=== PATIENT | female | born 1975 | race Caucasian/White ===

== ENCOUNTER 2017-08-13 18:05 | Emergency (ER) | payer OTHER ==
[~2017-08-13] VITALS: Ht 170.2 cm; Wt 59.1 kg
[~2017-08-13 18:05] MED LIST: ATIVAN0.5 MG PO; CORTISOL; LEVOTHYROXINE0.15 MG PO; MULTIVITAMIN1 TA1 PO; NO HOME MEDICATIONS; PERCOCET 325 MG1 TA2 PO; VITAMIN C BUFF500 MG PO; VITAMIN D5000 IU PO; ZOFRAN 4MG T4 MG/TAB PO; [UNRECOGNIZED DRUG - OTHER] PO; [UNRECOGNIZED DRUG - REMARK]; [UNRECOGNIZED DRUG - REMARK]; vitamins
[2017-08-13 18:09] VITALS: BP 144/63; TEMP 99.3
[2017-08-13 19:38] VITALS: PULSE 65
== END 2017-08-13 19:40 | disposition home or self-care (01) ==
LOC: COL.ER 18:05
DX: S63.257A Unspecified dislocation of left little finger, initial encounter (principal); W21.01XA Struck by football, initial encounter

== ENCOUNTER 2022-03-28 23:48 | Observation (INO) | payer OTHER ==
[~2022-03-28] VITALS: Ht 170.2 cm; Wt 75.0 kg
[2022-03-29] VITALS (12 sets, daily range): BP systolic 97–131; BP diastolic 50–86; PULSE 59–76; TEMP 98–98.5
[2022-03-29 00:39] LABS: BASO # 0.1 K/mm3 (0.0-0.2); BASO % 0.4 % (0.0-2.0); EOS # 0.2 K/mm3 (0.0-0.7); EOS % 0.8 % (0.0-4.0); GRAN % 76.2 % (42.2-75.2); HEMATOCRIT 39.3 % (37.0-47.0); HEMOGLOBIN 13.7 g/dl (12.5-16.0); LYMPH # 3.1 K/mm3 (1.2-3.4); LYMPH % 15.8 % (20.0-51.0); MEAN CELL VOLUME 86 fl (80.0-100.0); MEAN CORPUSCULAR HEMOGLOBIN 30 pg (27-31); MEAN CORPUSCULAR HGB CONC 35 g/dl (33.0-37.0); MEAN PLATELET VOLUME 9.8 fl (7.4-10.4); MONO # 1.1 K/mm3 (0.1-0.6); MONO % 5.8 % (1.7-9.3); PLATELET COUNT 339 K/mm3 (130-400); RED BLOOD COUNT 4.56 M/mm3 (4.10-5.30); REDCELL DISTRIBUTION WIDTH-CV 12.1 % (11.5-14.5)
[2022-03-29 00:47] LABS: ALBUMIN 4.6 gm/dL (3.5-5.0); BILIRUBIN,TOTAL 0.3 mg/dL (0.2-1.2); C-REACTIVE PROTEIN 0.15 mg/dL (0.00-0.50); CALCIUM 9.4 mg/dL (8.4-10.2); CREATININE, serum 0.91 mg/dL (0.57-1.11); TOTAL PROTEIN 7.3 gm/dL (6.2-8.1)
[2022-03-29 00:52] LABS: POTASSIUM 2.8 mmol/L (3.5-4.5)
[2022-03-29 02:49] LABS: COLLECTION METHOD CLEAN CATCH
[2022-03-29 03:00] LABS: MUCOUS Present (NOT PRESENT); PH 7 (5-8); SQUAMOUS EPITHELIAL 0-2 /hpf (0-10); URINE APPEARANCE Clear (CLEAR/HAZY); URINE BACTERIA None Seen /hpf (NONE SEEN); URINE BILIRUBIN Negative (NEGATIVE); URINE BLOOD 1+ (NEGATIVE); URINE COLOR Yellow (YELLOW); URINE GLUCOSE Negative (NEGATIVE); URINE KETONE 2+ (NEGATIVE); URINE LEUKOCYTE ESTERASE Negative (NEGATIVE); URINE NITRATE Negative (NEGATIVE); URINE PROTEIN(semi-quant) 1+ (NEGATIVE); URINE UROBILINOGEN Negative (NEGATIVE)
--- NOTE | 2022-03-29 21:55 | NUR ---
2156-RESTING IN BED AND DENIES NEEDS. PLAN OF CARE DISCUSSED AND PT SLEEPY AT THIS TIME. SCHEDULED MOTRIN GIVEN PO.
[2022-03-30 00:01] VITALS: BP 116/65; PULSE 70; TEMP 98.4
[2022-03-30 04:15] VITALS: BP 115/49; PULSE 71; TEMP 98
[2022-03-30 08:30] VITALS: BP 119/73; PULSE 85; TEMP 97.7
[2022-03-30] MEDS ORDERED: PERCOCET 325 MG1 TA2 PO (09:27)
[2022-03-30] MEDS ORDERED: IBU800 M1 PO (09:27)
--- NOTE | 2022-03-30 10:05 | NUR ---
Discharge instructions and follow up care reviewed with pt and at the bedside. Both verbalized an understanding, agreed with the plan and states no questions or concerns at this time.
== END 2022-03-30 10:05 | disposition home or self-care (01) ==
LOC: COL.ER 23:48 → SDCO 03-29 03:42 → COL.ER 03-29 03:42 → OB 03-29 06:18 → SDCO 03-29 06:50 → OB 03-30 06:17 → SDCO 03-30 10:05 → OB 03-30 10:05
PROVIDERS: Nurse Practitioner; ADMIT Obstetrics & Gynecology
DX: D27.0 Benign neoplasm of right ovary (principal); N85.2 Hypertrophy of uterus
CPT/HCPCS: OP; G0378; J0690; J1100; J1170; J1885; J2405; J2704; J2710; J3010; J3480; J7030; Q9967